=== PATIENT | female | born 1950 | race Hispanic/Latino ===

== ENCOUNTER 2016-11-01 10:33 | Emergency (ER) | payer MEDICARE, MEDICAID ==
[2016-11-01 10:34] VITALS: BMI 25.8
[2016-11-01 10:56] VITALS: BP 117/71; PULSE 82; RESP 20; TEMP 99.8; O2SAT 96
--- NOTE | 2016-11-01 11:10 | ED PDOC ---
HPI: Altered Mental Status Time Seen by Provider: 11/01/16 10:38 Chief Complaint (Nursing): Weakness/Neurological Deficit Chief Complaint (Provider): Generalized weakness/fatigue History Per: Patient History/Exam Limitations: Clinical Condition Onset/Duration Of Symptoms: Unknown (7am?) Onset Of Symptoms: Cannot Confirm Onset Current Symptoms Are (Timing): Still Present Usual Baseline: Alert Oriented Exacerbating Factor(s): Unknown Use Of Anticoag/Antiplatlets: No Decreased Ability To: Walk Severity: None Additional History Per: Family (homemaker) Associated Symptoms: Headache, Trouble Concentrating, Weakness. denies: Fever, Chills, Sweating, Chest Pain, Neck Pain, Back Pain, Seizure, Disoriented, Confused, Agitated, Not Eating, Not Drinking, Vomiting, Diarrhea, Cough, Dyspnea , Incontinence, Syncope, Combative, Falling Additional Complaint(s): 66 year old female with medical history of HIV, Anxiety, COPD, HLD presents to the ED via EMS due to drowsiness, generalized weakness, dizziness, posterior headache since waking up @ 7am. Patient states was in usual state of health last night. Patient states this morning woke up feeling very tired and off balanced when walking with cane. No recent changes in meds/diet, states compliance with medications. 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 No changes in speech, focal weakness, numbness/tingling, or visual changes. No fever, chills, abdominal pain, nausea, vomiting, diarrhea, or back pain. No urinary symptoms or neck stiffness. PMD: Dr. Hernandez NIHSS Stroke Scale - Date/Time Evaluation Performed Date Performed: 11/01/16 Time Performed: 11:00 When Was NIHSS Performed: Baseline - How Severe is the Stroke Level of Consciousness: 0=Alert LOC to Questions: 0=Both comments correct LOC to commands: 0=Obeys both correctly Best Gaze: 0=Normal Visual: 0=No visual loss Facial: 0=Normal Motor Arm - Left: 0=No drift Motor Arm - Right: 0=No drift Motor Leg - Left: 0=No drift Motor Leg - Right: 0=No drift Limb Ataxia: 0=Absent Sensory: 0=Normal Best Language: 0=No aphasia Dysarthia: 0=Normal articulation Extinction & Inattention (Neglect): 0=Normal, no object Score: 0 Past Medical History Reviewed: Historical Data, Nursing Documentation, Vital Signs Vital Signs: Last Vital Signs Temp 99.8 F H 11/01/16 10:49 Pulse 82 11/01/16 10:49 Resp 20 11/01/16 10:49 BP 117/71 11/01/16 10:49 Pulse Ox 96 11/01/16 10:49 - Medical History PMH: Anxiety, Arthritis, Asthma, Back Problems (chronic back pain, currently sees pain management ), COPD, HIV, Hypercholesterolemia, Pneumonia (x3 in 2000) Denies: Chronic Kidney Disease - Surgical History Surgical History: Cholecystectomy - Family History Family History: States: Unknown Family Hx - Home Medications Home Medications: Ambulatory Orders Medication Instructions Recorded Rosuvastatin Calcium [Crestor] 20 mg PO DAILY 06/17/14 clonazePAM [Klonopin] 1.5 mg PO TID PRN 06/17/14 Albuterol Sulfate [Proair Hfa] 0.09 mg IH PRN PRN 10/25/14 Calcium/Cholecalciferol [Oysco 500 1 tab PO DAILY 10/25/14 + D 500 mg-200 Iu] Emtricita/rilpivir/tenofovir 1 tab PO DAILY 10/25/14 [Complera 200 mg-25 mg-300 mg] Fluticasone/Salmeterol 250/50 1 puff IH Q12 10/25/14 [Advair Diskus] Oxycodone Hydrochloride [Oxycodone] 30 mg PO PRN PRN 10/25/14 Oxycodone Hydrochloride [Oxycontin] 60 mg PO PRN PRN 10/25/14 Albuterol HFA [Ventolin HFA 90 2 puff IH [id number] PRN #1 inhaler 08/02/15 mcg/actuation (8 g)] Azithromycin [Zithromax] 1 tab PO DAILY #6 tablet 08/02/15 Ibuprofen [Motrin] 600 mg PO Q6H PRN #20 tab 12/11/15 Acetaminophen [Tylenol Extra 500 mg PO TID #30 tablet 12/15/15 Strength] Ibuprofen [Motrin] 600 mg PO TID PRN #30 tab 12/15/15 clonazePAM [clonAZEPAM] 1 mg PO TID PRN #9 tab 04/16/16 Sulfamethoxazole/Trimethoprim 1 tab PO Q12 #14 tab 11/01/16 [Bactrim DS 800 mg-160 mg] - Allergies Allergies/Adverse Reactions: Allergies Allergy/AdvReac Type Severity Reaction Status Date / Time No Known Allergies Allergy Verified 12/14/15 22:06 Review of Systems ROS Statement: Except As Marked, All Systems Reviewed And Found Negative Neurological: Positive for: Weakness (generalized, no focal complaints), Dizziness, Other (fatigue, drowsy). Negative for: Change in Speech Physical Exam - Reviewed Nursing Documentation Reviewed: Yes Vital Signs Reviewed: Yes - Physical Exam Appears: Positive for: Non-toxic, No Acute Distress Head Exam: Positive for: ATRAUMATIC, NORMAL INSPECTION, NORMOCEPHALIC Skin: Positive for: Normal Color, Warm, Dry Eye Exam: Positive for: Normal appearance, EOMI, PERRL ENT: Positive for: Normal ENT Inspection, Pharynx Is (normal) Neck: Positive for: Normal, Painless ROM, Supple Cardiovascular/Chest: Positive for: Regular Rate, Rhythm Respiratory: Positive for: Normal Breath Sounds Gastrointestinal/Abdominal: Positive for: Normal Exam, Bowel Sounds (present), Soft. Negative for: Tenderness Back: Positive for: Normal Inspection. Negative for: L CVA Tenderness, R CVA Tenderness Extremity: Positive for: Normal ROM. Negative for: Tenderness Neurologic/Psych: Positive for: Alert, board attendant II-XII, Oriented. Negative for: Motor/Sensory Deficits, Aphasia, Facial Droop - Laboratory Results Result Diagrams: 11/01/16 11:28 11/01/16 11:28 - ECG O2 Sat by Pulse Oximetry: 96 Pulse Ox Interpretation: Normal - Progress ED Course And Treament: Time: 1100 Impression: 66 yo F w/ PMHx of HIV, Anxiety, COPD, HLD with drowsiness, generalized weakness, dizziness, posterior headache since waking up @ 7am. VSS. Afebrile. Plan: * CBC * CMP * UDS * URIANALYSIS * PT/PTT/INR * ALCOHOL SERUM * POC GLUCOSE * EKG * CONTINUOUS CARDIAC MONITORING * CT HEAD W/O CONTRAST * NS 1L BOLUS * REEVAL Time: 1300 Labs reviewed, unremarkable, urine pending Time: 1340 Urine studies reviewed, positive for opiates and evidence of UTI in UA. Improved symptoms though c/o headache. Tylenol 650mg x 1 Time: 1500 Patient re-evaluated, much improved symptoms, requests to go home. Discussed findings with patient, including UTI and likely cause of dizziness (opiates). Will send for urine culture. Patient to be discharged home. Rx given. ED precautions given. Disposition - Clinical Impression Clinical Impression: UTI (urinary tract infection), Dizziness - Patient ED Disposition Is Patient to be Admitted: No Counseled Patient/Family Regarding: Studies Performed, Diagnosis, Need For Followup, Rx Given - Disposition Referrals: Sammy Hernandez MD [Family Provider] - Disposition: Routine/Home Disposition Time: 15:00 Condition: GOOD Additional Instructions: Follow up with PMD in 2-3 days Take medications as prescribed Return to ED for worsening symptoms. Prescriptions: Sulfamethoxazole/Trimethoprim [Bactrim DS 800 mg-160 mg] 1 tab PO Q12 #14 tab Instructions: Urinary Tract Infection in Women (ED), Dizziness (ED)
[2016-11-01] MEDS ORDERED: Sodium Chloride 0.9% 1,000 ML IV SCH (11:15)
--- NOTE | 2016-11-01 12:00 | CT ---
PROCEDURE: CT HEAD WITHOUT CONTRAST. HISTORY: ams COMPARISON: Comparison made with CT scan brain 06/16/2016 and MRI brain 01/20/14 TECHNIQUE: Axial computed tomography images were obtained through the head/brain without intravenous contrast. Radiation dose: Total exam DLP = 877.21 mGy-cm. This CT exam was performed using one or more of the following dose reduction techniques: Automated exposure control, adjustment of the mA and/or kV according to patient size, and/or use of iterative reconstruction technique. FINDINGS: HEMORRHAGE: No acute parenchymal, subarachnoid or extra-axial hemorrhage. BRAIN: There are mild chronic periventricular white matter ischemic changes. No evidence of large acute infarct so far as can be seen. VENTRICLES: Mild generalized volume loss with prominent ventricles and sulci. CALVARIUM: There are no acute calvarial fractures. Mottled appearance of the inner table of the calvarium nonspecific. The scattered lucencies likely represent some combination of venous lakes and vascular grooves. PARANASAL SINUSES: The paranasal sinuses are well-developed and currently well-aerated. MASTOID AIR CELLS: Unremarkable as visualized. No inflammatory changes. OTHER FINDINGS: Orbits and contents grossly unremarkable. IMPRESSION: No acute intracranial hemorrhage or large acute infarct. . Mild chronic periventricular white matter ischemic changes. Mild generalized volume loss.
[2016-11-01 12:03] LABS: BASO % 0.7 % (0.0-2.0); EOS # 0.1 K/uL (0.0-0.7); EOS % 1.3 % (0.0-4.0); HEMATOCRIT 37.2 % (34.0-47.0); LYMPH # 1.5 K/uL (1.0-4.3); MEAN CELL VOLUME 96.1 fl (81.0-99.0); MEAN CORPUSCULAR HGB CONC 33.3 g/dL (33.0-37.0); MEAN PLATELET VOLUME 7.8 fl (7.2-11.7); MONO # 0.5 K/uL (0.0-0.8); NEUT # 4.9 K/uL (1.8-7.0); RED CELL DISTRIBUTION WIDTH 13.8 % (11.5-14.5)
[2016-11-01 12:16] LABS: ALB/GLOB RATIO 1.6 (1.0-2.1); ALCOHOL SERUM < 10 mg/dl (0-10); ALKALINE PHOSPHATASE 86 U/L (38-126); ALT/SGPT 28 U/L (9-52); AST/SGOT 21 U/L (14-36); BILIRUBIN,TOTAL 0.3 mg/dl (0.2-1.3); BLOOD UREA NITROGEN 20 mg/dl (7-17); CALCIUM 9.2 mg/dL (8.4-10.2); CARBON DIOXIDE 29 mmol/L (22-30); CHLORIDE 103 mmol/L (98-107); GFR AFRICAN-AMERICAN > 60; GLUCOSE,RANDOM 98 mg/dL (65-105); POTASSIUM 4.5 MMOL/L (3.6-5.0); SODIUM 141 mmol/l (132-148); TOTAL PROTEIN 7.2 G/DL (6.3-8.2)
--- NOTE | 2016-11-01 12:20 | CARD ---
APPROVED REPORT EKG Measurement Heart [id number] [id number] [id number] <Conclusion> Normal sinus rhythm Left axis deviation Abnormal ECG
[2016-11-01 12:35] LABS: PARTIAL THROMBOPLASTIN TIME 23.8 SECONDS (23.3-32.5)
[2016-11-01 13:19] LABS: RBC URINE 10 /hpf (0-3); URINE BACTERIA RARE (<OCC); URINE BILIRUBIN NEGATIVE (NEGATIVE); URINE BLOOD SMALL (NEGATIVE); URINE COLOR YELLOW (YELLOW); URINE GLUCOSE (UA) NEG (Normal); URINE KETONE NEGATIVE (NEGATIVE); URINE LEUKOCYTE ESTERASE LARGE Leu/uL (Negative); URINE PROTEIN NEGATIVE (NEGATIVE); URINE UROBILINOGEN 0.2-1.0 mg/dL (0.2-1.0); WBC URINE 21 /hpf (0-5)
== END 2016-11-01 15:22 | disposition home or self-care (01) ==
LOC: H.ER 10:33
DX: N39.0 Urinary tract infection, site not specified (principal); R51 Headache; R42 Dizziness and giddiness; F41.9 Anxiety disorder, unspecified; E78.00 Pure hypercholesterolemia, unspecified; G89.29 Other chronic pain; J44.9 Chronic obstructive pulmonary disease, unspecified; J45.909 Unspecified asthma, uncomplicated; B20 Human immunodeficiency virus [HIV] disease
CPT/HCPCS: 70450; 80053; 81003; 82948; 85025; 85610; 85730; 93005; 99285; G0480; J7040

== ENCOUNTER 2017-03-21 17:52 | Observation (INO) | payer MEDICARE, MEDICAID ==
[2017-03-21 17:52] VITALS: BMI 25.8
[2017-03-21] MEDS ORDERED: Albuterol-Ipratrop 3 mg / 0.5 (3 ml) UD INH STA (18:38)
--- NOTE | 2017-03-21 18:58 | ED PDOC ---
HPI: CCC, URI, Sore Throat Time Seen by Provider: 03/21/17 18:25 Chief Complaint (Nursing): Cough, Cold, Congestion Chief Complaint (Provider): Cough and Congestion History Per: Patient History/Exam Limitations: no limitations Onset/Duration Of Symptoms: Days (x3 weeks) Current Symptoms Are (Timing): Still Present Associated Symptoms: Fever (Tmax 102), Cough, Sputum (wile and yellow sputum), Nasal Congestion Additional Complaint(s): Martina Uribe, a 66 year old female, with a past medical history of HIV presents to the ED complaining cough and congestion x3 weeks. The patient states that initially the her symptoms were mild but now they are more severe associated with shortness of breath, fever(Tmax 102) and a cough productive of yellow and white sputum. Denies diarrhea, vomiting and leg swelling. The patient reports that she was seen at the clinic 3 weeks ago and diagnosed with asthma. She states that she was given an inhaler but there has been no improvement of her symptoms. PMD: Dr. Hernandez - [facility] Past Medical History Vital Signs: Last Vital Signs Temp 98.0 F 03/22/17 07:39 Pulse 68 03/22/17 07:39 Resp 18 03/22/17 07:39 BP 124/69 03/22/17 07:39 Pulse Ox 96 03/22/17 07:39 - Medical History PMH: Anxiety, Arthritis, Asthma, Back Problems (chronic back pain, currently sees pain management ), COPD, Depression, HIV, Hypercholesterolemia, Pneumonia (x3 in 2000) Denies: Chronic Kidney Disease - Surgical History Surgical History: Cholecystectomy Other surgeries: Eye surgery, Shoulder surgery - Family History Family History: States: Unknown Family Hx - Social History Current smoker - smoking cessation education provided: Yes (heavy smoker) Alcohol: None Drugs: Denies - Home Medications Home Medications: Ambulatory Orders Medication Instructions Recorded clonazePAM [Klonopin] 1.5 mg PO TID PRN 06/17/14 Oxycodone Hydrochloride [Oxycodone] 30 mg PO PRN PRN 10/25/14 Oxycodone Hydrochloride [Oxycontin] 60 mg PO PRN PRN 10/25/14 clonazePAM [Klonopin] 1 mg PO TID PRN #9 tab 04/16/16 Sulfamethoxazole/Trimethoprim 1 tab PO Q12 #14 tab 11/01/16 [Bactrim DS Tab] Abacavir/Dolutegravir/Lamivudi 1 tab PO DAILY 03/21/17 [Triumeq Tablet] Escitalopram [Lexapro] 1 tab PO DAILY 03/21/17 Mirtazapine [Remeron] 15 mg PO HS 03/21/17 Albuterol HFA [Ventolin HFA 90 2 puff IH Q4 #1 inhaler 03/22/17 mcg/actuation (8 g)] levoFLOXacin [Levaquin] 500 mg PO DAILY 4 Days #4 tab 03/22/17 predniSONE [Prednisone] 40 mg PO DAILY #8 tab 03/22/17 - Allergies Allergies/Adverse Reactions: Allergies Allergy/AdvReac Type Severity Reaction Status Date / Time No Known Allergies Allergy Verified 12/14/15 22:06 Review of Systems ROS Statement: Except As Marked, All Systems Reviewed And Found Negative Constitutional: Positive for: Fever (Tmax 102) ENT: Positive for: Nose Congestion Respiratory: Positive for: Cough Gastrointestinal: Negative for: Vomiting, Diarrhea Musculoskeletal: Positive for: Other (Denies leg swelling) Physical Exam - Reviewed Nursing Documentation Reviewed: Yes Vital Signs Reviewed: Yes - Physical Exam Appears: Positive for: Non-toxic, In Acute Distress (mild respiratory) Head Exam: Positive for: ATRAUMATIC, NORMOCEPHALIC Skin: Positive for: Warm, Dry Eye Exam: Positive for: EOMI, PERRL ENT: Negative for: Pharyngeal Erythema, Tonsillar Exudate Neck: Positive for: Painless ROM, Supple Cardiovascular/Chest: Positive for: Regular Rate, Rhythm. Negative for: Murmur Respiratory: Positive for: Rhonchi, Wheezing, Respiratory Distress. Negative for: Accessory Muscle Use Gastrointestinal/Abdominal: Positive for: Soft. Negative for: Tenderness Back: Positive for: Normal Inspection. Negative for: Vertebral Tenderness Extremity: Positive for: Normal ROM. Negative for: Deformity Lymphatic: Negative for: Adenopathy Neurologic/Psych: Positive for: Alert. Negative for: Motor/Sensory Deficits - Laboratory Results Result Diagrams: 03/21/17 19:05 03/21/17 19:05 - ECG O2 Sat by Pulse Oximetry: 94 (RA) Pulse Ox Interpretation: Normal Medical Decision Making Medical Decision Makin Initial Impression: 66 y/o female presenting with cough and shortness of breath Differentials: Pneumonia vs Bronchitis vs CHF vs Asthma Exacerbation Initial plan: * VBG Shock Panel * B-type Natriuretic * CMP * LDH * Troponin * Chest x-ray * Duoneb 9ml INH * SOLU-medrol 125mg IVP * Blood Culture * Peak Flow * pre/post Influenza A B * Reevaluation CXR unremarkable. Labs with no emergently significant lab abnormalities. On reeval pt has persisten diffuse wheeze and rhonchi with no improvement of peak flow. Needs hospitalization for what appears to be initial diagnosis of COPD and exacerbation. [facility] resident. Scribe Attestation Documented by Ashley Funk acting as a scribe for Maritza Villafuerte MD. Provider Attestation All medical record entries made by the Scribe were at my direction and personally dictated by me. I have reviewed the chart and agree that the record accurately reflects my personal performance of the history, physical exam, medical decision making, and the department course for this patient. I have also personally directed, reviewed, and agree with the discharge instructions and disposition. Disposition - Clinical Impression Clinical Impression: Asthma exacerbation with COPD (chronic obstructive pulmonary disease) Counseled Patient/Family Regarding: Studies Performed, Diagnosis - Disposition Disposition Time: 20:00 Condition: FAIR
[2017-03-21 19:17] LABS: BASO % 0.3 % (0.0-2.0); EOS # 0.1 K/uL (0.0-0.7); EOS % 1.5 % (0.0-4.0); HEMATOCRIT 38.2 % (34.0-47.0); LYMPH # 2.3 K/uL (1.0-4.3); LYMPH % 29.2 % (20.0-40.0); MEAN CELL VOLUME 95.5 fl (81.0-99.0); MEAN CORPUSCULAR HEMOGLOBIN 32.3 pg (27.0-31.0); MEAN CORPUSCULAR HGB CONC 33.8 g/dL (33.0-37.0); MEAN PLATELET VOLUME 7.2 fl (7.2-11.7); MONO # 0.6 K/uL (0.0-0.8); MONO % 7.5 % (0.0-10.0); NEUT # 4.9 K/uL (1.8-7.0); NEUT % 61.5 % (50.0-75.0); NRBC % 0.1 % (0.0-0.0); RED CELL DISTRIBUTION WIDTH 14.5 % (11.5-14.5)
[2017-03-21 19:28] LABS: ALB/GLOB RATIO 1.4 (1.0-2.1); ALKALINE PHOSPHATASE 86 U/L (38-126); ALT/SGPT 28 U/L (9-52); AST/SGOT 24 U/L (14-36); BILIRUBIN,TOTAL 0.4 mg/dl (0.2-1.3); BLOOD UREA NITROGEN 17 mg/dl (7-17); CALCIUM 9.5 mg/dL (8.4-10.2); CARBON DIOXIDE 28 mmol/L (22-30); CHLORIDE 103 mmol/L (98-107); GFR AFRICAN-AMERICAN > 60; GLUCOSE,RANDOM 105 mg/dL (65-105); POTASSIUM 4.1 MMOL/L (3.6-5.0); SODIUM 145 mmol/l (132-148); TOTAL PROTEIN 7.6 G/DL (6.3-8.2)
[2017-03-21 19:44] LABS: VENOUS BLOOD GAS BASE EXCESS 3.9 mmol/L (0.0-2.0); VENOUS BLOOD GAS PCO2 70 mmHg (40-60); VENOUS BLOOD PH 7.28 (7.32-7.43)
[2017-03-21] MEDS ORDERED: levoFLOXacin 750 mg in D5W 150 ML BAG IVPB STA (20:46)
[2017-03-21] MEDS ORDERED: [UNRECOGNIZED DRUG - OTHER] PO PRN ×2 (21:12→21:36)
[2017-03-21] MEDS ORDERED: OXYCODONE HYDROCHLORIDE 30 MG PO PRN ×2 (21:12→21:35)
--- NOTE | 2017-03-21 21:39 | CP.PCM.HP ---
History of Present Illness - History of Present Illness History of Present Illness: Pt is a 66 year old female, with a past medical history of HIV,chronic pain, and active smoker who presents to the ED complaining cough and congestion x3 weeks. The patient states that initially the her symptoms were mild but now they are more severe associated with shortness of breath, fever(Tmax 102) and a cough productive of yellow and white sputum and also vomited once this morning. Pt reports she saw her [facility] doctor on 03/17/17 where she was diagnosed with Asthma and given a script for an inhaler and also steroids 50mg PO daily for which she is not taking. Denies diarrhea, vomiting and leg swelling. Does not have any other complaints other reddy PMD- Originally Dr. Hernandez but now seeing Dr. Liu Present on Admission - Present on Admission Any Indicators Present on Admission: No Review of Systems - Review of Systems All systems: reviewed and no additional remarkable complaints except (per HPI) Past Patient History - Infectious Disease Hx of Infectious Diseases: None - Past Medical History & Family History Past Medical History?: Yes - Past Social History Alcohol: None Drugs: Denies - CARDIAC Hx Hypercholesterolemia: Yes - PULMONARY Hx Asthma: Yes Hx Chronic Obstructive Pulmonary Disease (COPD): Yes Hx Pneumonia: Yes (x3 in 2000) - NEUROLOGICAL Hx Neurological Disorder: No - HEENT Hx HEENT Problems: No - RENAL Hx Chronic Kidney Disease: No - ENDOCRINE/METABOLIC Hx Endocrine Disorders: No - HEMATOLOGICAL/ONCOLOGICAL Hx Human Immunodeficiency Virus (HIV): Yes - INTEGUMENTARY Hx Dermatological Problems: No - MUSCULOSKELETAL/RHEUMATOLOGICAL Hx Arthritis: Yes - GASTROINTESTINAL Hx Gastrointestinal Disorders: No - GENITOURINARY/GYNECOLOGICAL Hx Genitourinary Disorders: No - PSYCHIATRIC Hx Anxiety: Yes Hx Depression: Yes - SURGICAL HISTORY Hx Cholecystectomy: Yes - ANESTHESIA Hx Anesthesia: Yes Hx Anesthesia Reactions: No Hx Malignant Hyperthermia: No Meds Allergies/Adverse Reactions: Allergies Allergy/AdvReac Type Severity Reaction Status Date / Time No Known Allergies Allergy Verified 12/14/15 22:06 Physical Exam - Constitutional Appears: Older Than Stated Age - Head Exam Head Exam: NORMOCEPHALIC - Eye Exam Eye Exam: Normal appearance, PERRL Pupil Exam: NORMAL ACCOMODATION - ENT Exam ENT Exam: Mucous Membranes Moist - Respiratory Exam Respiratory Exam: Rales, Rhonchi, NORMAL BREATHING PATTERN. absent: Accessory Muscle Use, Wheezes - Cardiovascular Exam Cardiovascular Exam: REGULAR RHYTHM, +S1, +S2 - GI/Abdominal Exam GI & Abdominal Exam: Normal Bowel Sounds, Soft. absent: Tenderness - Extremities Exam Extremities exam: Negative for: calf tenderness, pedal edema - Neurological Exam Neurological exam: Alert, CN II-XII Intact, Oriented x3 - Psychiatric Exam Psychiatric exam: Anxious Results - Vital Signs Recent Vital Signs: Last Vital Signs Temp 98.1 F 03/21/17 20:52 Pulse 100 H 03/21/17 18:15 Resp 20 03/21/17 18:15 BP 157/89 H 03/21/17 18:15 Pulse Ox 94 L 03/21/17 20:50 - Labs Result Diagrams: 03/21/17 19:05 03/21/17 19:05 Labs: Laboratory Results - last 24 hr 03/21/17 03/21/17 03/21/17 19:05 19:05 19:18 WBC 8.0 RBC 3.99 Hgb 12.9 Hct 38.2 MCV 95.5 MCH 32.3 H MCHC 33.8 RDW 14.5 Plt Count 340 D MPV 7.2 Neut % (Auto) 61.5 Lymph % (Auto) 29.2 Hodgeman % (Auto) 7.5 Eos % (Auto) 1.5 Baso % (Auto) 0.3 Neut # 4.9 Lymph # 2.3 Hodgeman # 0.6 Eos # 0.1 Baso # 0.0 pO2 VBG pH VBG pCO2 VBG HCO3 VBG Total CO2 VBG O2 Sat (Calc) VBG Base Excess VBG Potassium Glucose Lactate FiO2 Crit Value Called To Crit Value Called By Crit Value Read Back Blood Gas Notified Time Sodium 145 Potassium 4.1 Chloride 103 Carbon Dioxide 28 Anion Gap 18 BUN 17 Creatinine 1.1 Est GFR ( Amer) > 60 Est GFR (Non-Af Amer) 50 Random Glucose 105 Calcium 9.5 Total Bilirubin 0.4 AST 24 ALT 28 Alkaline Phosphatase 86 Lactate Dehydrogenase 460 Troponin I < 0.0120 NT-Pro-B Natriuret Pep 78.1 Total Protein 7.6 Albumin 4.4 Globulin 3.2 Albumin/Globulin Ratio 1.4 Venous Blood Potassium Influenza Typ A,B (EIA) Negative for flu a/b 03/21/17 19:35 WBC RBC Hgb Hct MCV MCH MCHC RDW Plt Count MPV Neut % (Auto) Lymph % (Auto) Hodgeman % (Auto) Eos % (Auto) Baso % (Auto) Neut # Lymph # Hodgeman # Eos # Baso # pO2 17 L VBG pH 7.28 L VBG pCO2 70 H* VBG HCO3 25.8 VBG Total CO2 35.0 H VBG O2 Sat (Calc) 33.8 L VBG Base Excess 3.9 H VBG Potassium 4.1 Glucose 106 H Lactate 0.7 FiO2 23.0 Crit Value Called To Percy goode Crit Value Called By 23 Crit Value Read Back Y Blood Gas Notified Time 1939 Sodium 140.0 Potassium Chloride 103.0 Carbon Dioxide Anion Gap BUN Creatinine Est GFR ( Amer) Est GFR (Non-Af Amer) Random Glucose Calcium Total Bilirubin AST ALT Alkaline Phosphatase Lactate Dehydrogenase Troponin I NT-Pro-B Natriuret Pep Total Protein Albumin Globulin Albumin/Globulin Ratio Venous Blood Potassium 4.1 Influenza Typ A,B (EIA) Assessment & Plan - Assessment and Plan (Free Text) Assessment: 66 y/o female with no history of HIV, chronic pain and anxiety and recent diagnosis of asthma, being admitted for asthma exacerbation Plan: 1. Mild Persistent Asthma Exacerbation vs beginning stages of COPD given smoking status and lung exam Steriod of 125mg given in Ed 9ml of duoneb at ED and dose of levaquin given Chest xray negative for pneumonia Will hold of continuing antibiotics for now, re-evaluate in the morning continue with duonebs Q4hrs steroids 40mg Q12hrs monitor 2. HIV( no evidence of AIDS defining disease) CD count 900 per pt Pt on triumeq at home, but not on formulary here at this hospital and pt lives alone so nobody will be able to bring it to her Ordered the 3 components of triumeq -continue with bactrim DS 3. Anxiety Home medication- remeron, klonopin resumed monitor 4.Current Smoker 40 years of smoking, currently smoking 1/2 pack a day on nictoine 21mg patch daily already initiated quitting with her PCP 5. Diet- regular 6. DVT prophylaxis- Lovenox 40mg
[2017-03-21] MEDS ORDERED: oxyCODONE 10 mg Immediate Release Tab PO PRN ×2 (23:24→23:25)
[2017-03-22] MEDS: Albuterol-Ipratrop 3 mg / 0.5 (3 ml) UD INH SCH ×4 (00:28→11:54)
[2017-03-22 07:40] VITALS: BP 124/69; PULSE 68; RESP 18; TEMP 98
[2017-03-22] MEDS: Pneumococcal 23-Valent Vaccine IM ONE ×2 (08:20→09:43)
[2017-03-22] MEDS ORDERED: Tmp-Smz 800 mg-160 mg DS Tab PO SCH (09:00)
[2017-03-22] MEDS ORDERED: Influenza Vaccine 18yr & older 0.5 ML/45 MCG SYR IM ONE (09:00)
[2017-03-22] MEDS ORDERED: Azithromycin 500 MG in Sodium Chloride 0.9% 250 ML IVPB SCH (09:00)
[2017-03-22] MEDS ORDERED: Enoxaparin 40 mg Syringe SC SCH (09:00)
[2017-03-22] MEDS ORDERED: methylPREDNISolone 40 MG in Sodium Chloride 0.9% 50 ML IVPB SCH (09:00)
[2017-03-22] MEDS ORDERED: Sodium Chloride 3% for Inhalation 4 ML VIAL.NEB IH PRN (10:31)
[2017-03-22] MEDS ORDERED: levoFLOXacin 500 MG TAB PO SCH (10:45)
--- NOTE | 2017-03-22 11:24 | RAD ---
HISTORY: cough fever COMPARISON: Chest radiographs 04/15/2016. TECHNIQUE: Chest PA and lateral FINDINGS: LUNGS: No active pulmonary disease. PLEURA: No significant pleural effusion identified. No pneumothorax apparent. CARDIOVASCULAR: Normal. OSSEOUS STRUCTURES: Incidental orthopedic anchors are identified at the right humeral head. VISUALIZED UPPER ABDOMEN: Normal. OTHER FINDINGS: None. IMPRESSION: No interval acute cardiopulmonary disease appreciated.
--- NOTE | 2017-03-22 12:17 | CP.PCM.DIS ---
Provider - Provider Date of Admission: 03/21/17 20:47 Attending physician: Magda Starks MD Time Spent in preparation of Discharge (in minutes): 20 Diagnosis - Discharge Diagnosis (1) Asthma exacerbation with COPD (chronic obstructive pulmonary disease) Status: Acute (2) Bronchitis Status: Acute Hospital Course - Lab Results Lab Results: Most Recent Lab Values WBC 8.0 K/uL (4.8-10.8) 03/21/17 19:05 RBC 3.99 Mil/uL (3.80-5.20) 03/21/17 19:05 Hgb 12.9 g/dL (12.0-16.0) 03/21/17 19:05 Hct 38.2 % (34.0-47.0) 03/21/17 19:05 MCV 95.5 fl (81.0-99.0) 03/21/17 19:05 MCH 32.3 pg (27.0-31.0) H 03/21/17 19:05 MCHC 33.8 g/dL (33.0-37.0) 03/21/17 19:05 RDW 14.5 % (11.5-14.5) 03/21/17 19:05 Plt Count 340 K/uL (130-400) D 03/21/17 19:05 MPV 7.2 fl (7.2-11.7) 03/21/17 19:05 Neut % (Auto) 61.5 % (50.0-75.0) 03/21/17 19:05 Lymph % (Auto) 29.2 % (20.0-40.0) 03/21/17 19:05 Clare % (Auto) 7.5 % (0.0-10.0) 03/21/17 19:05 Eos % (Auto) 1.5 % (0.0-4.0) 03/21/17 19:05 Baso % (Auto) 0.3 % (0.0-2.0) 03/21/17 19:05 Neut # 4.9 K/uL (1.8-7.0) 03/21/17 19:05 Lymph # 2.3 K/uL (1.0-4.3) 03/21/17 19:05 Clare # 0.6 K/uL (0.0-0.8) 09/29/17 19:05 Eos # 0.1 K/uL (0.0-0.7) 03/21/17 19:05 Baso # 0.0 K/uL (0.0-0.2) 03/21/17 19:05 pO2 17 mm/Hg (30-55) L 03/21/17 19:35 VBG pH 7.28 (7.32-7.43) L 03/21/17 19:35 VBG pCO2 70 mmHg (40-60) H* 03/21/17 19:35 VBG HCO3 25.8 mmol/L 03/21/17 19:35 VBG Total CO2 35.0 mmol/L (22-28) H 03/21/17 19:35 VBG O2 Sat (Calc) 33.8 % (40-65) L 03/21/17 19:35 VBG Base Excess 3.9 mmol/L (0.0-2.0) H 03/21/17 19:35 VBG Potassium 4.1 mmol/L (3.6-5.2) 03/21/17 19:35 Sodium 140.0 mmol/L (132-148) 03/21/17 19:35 Chloride 103.0 mmol/L (98-107) 03/21/17 19:35 Glucose 106 mg/dL (65-105) H 03/21/17 19:35 Lactate 0.7 mmol/L (0.7-2.1) 03/21/17 19:35 FiO2 23.0 % 03/21/17 19:35 Crit Value Called To Percy goode 03/21/17 19:35 Crit Value Called By 23 03/21/17 19:35 Crit Value Read Back Y 03/21/17 19:35 Blood Gas Notified Time 193903/21/17 19:35 Sodium 145 mmol/l (132-148) 03/21/17 19:05 Potassium 4.1 MMOL/L (3.6-5.0) 03/21/17 19:05 Chloride 103 mmol/L (98-107) 03/21/17 19:05 Carbon Dioxide 28 mmol/L (22-30) 03/21/17 19:05 Anion Gap 18 (10-20) 03/21/17 19:05 BUN 17 mg/dl (7-17) 03/21/17 19:05 Creatinine 1.1 mg/dL (0.7-1.2) 03/21/17 19:05 Est GFR ( Amer) > 60 03/21/17 19:05 Est GFR (Non-Af Amer) 50 03/21/17 19:05 Random Glucose 105 mg/dL (65-105) 03/21/17 19:05 Calcium 9.5 mg/dL (8.4-10.2) 03/21/17 19:05 Total Bilirubin 0.4 mg/dl (0.2-1.3) 03/21/17 19:05 AST 24 U/L (14-36) 03/21/17 19:05 ALT 28 U/L (9-52) 03/21/17 19:05 Alkaline Phosphatase 86 U/L (38-126) 03/21/17 19:05 Lactate Dehydrogenase 460 U/L (313-618) 03/21/17 19:05 Troponin I < 0.0120 ng/mL (0.00-0.120) 03/21/17 19:05 NT-Pro-B Natriuret Pep 78.1 pg/ml (0-900) 03/21/17 19:05 Total Protein 7.6 G/DL (6.3-8.2) 03/21/17 19:05 Albumin 4.4 g/dL (3.5-5.0) 03/21/17 19:05 Globulin 3.2 gm/dL (2.2-3.9) 03/21/17 19:05 Albumin/Globulin Ratio 1.4 (1.0-2.1) 03/21/17 19:05 Venous Blood Potassium 4.1 mmol/L (3.6-5.2) 03/21/17 19:35 Influenza Typ A,B (EIA) Negative for flu a/b (NEGATIVE) 03/21/17 19:18 - Hospital Course Hospital Course: 66yo F smoker with PMHx HIV, newly dx asthma admitted for asthma exacerbation with likely COPD given 20+ pack year smoking hx. ABG showed non AG respiratory acidosis 2/2 CO2 retention. SOB symptomatically improved with duoneb treatments and IV steroids during hospitalization. Pt SaO2 >92% on RA at time of discharge and comfortably breathing. CXR showed no acute pathology. Pt d/c with albuterol inhaler, prednisone 40 PO x5 days, levaquin 500mg QD x5 days. Pt to contact [facility] for FU with Dr. Liu. Discharge Exam - Head Exam Head Exam: ATRAUMATIC, NORMOCEPHALIC - Eye Exam Eye Exam: Normal appearance - ENT Exam ENT Exam: Mucous Membranes Moist - Neck Exam Neck exam: Full Rom, Normal Inspection - Respiratory Exam Respiratory Exam: Rales, Wheezes - Cardiovascular Exam Cardiovascular Exam: REGULAR RHYTHM - GI/Abdominal Exam GI & Abdominal Exam: Normal Bowel Sounds, Soft - Extremities Exam Extremities exam: normal inspection - Back Exam Back exam: NORMAL INSPECTION - Neurological Exam Neurological exam: Alert, Oriented x3 - Skin Skin Exam: Dry, Warm Discharge Plan - Discharge Medications Prescriptions: Albuterol HFA [Ventolin HFA 90 mcg/actuation (8 g)] 2 puff IH Q4 #1 inhaler levoFLOXacin [Levaquin] 500 mg PO DAILY 4 Days #4 tab predniSONE [Prednisone] 40 mg PO DAILY #8 tab - Follow Up Plan Condition: FAIR Disposition: HOME/ ROUTINE Instructions: Asthma (DC), Acute Bronchitis (GEN) Additional Instructions: pt to make follow up appt with Dr. Liu Referrals: Keara Liu MD [Provisional Staff] -
[2017-03-22 17:03] VITALS: O2SAT 94
== END 2017-03-22 12:00 | disposition home or self-care (01) ==
LOC: H.ER 17:52 → H.ERHOLD 20:47 → H.MEDSURG1 22:33
PROVIDERS: ADMIT Family Medicine; ATTEND Family Medicine
DX: J44.9 Chronic obstructive pulmonary disease, unspecified (principal); J45.901 Unspecified asthma with (acute) exacerbation; Z21 Asymptomatic human immunodeficiency virus [HIV] infection status; E78.00 Pure hypercholesterolemia, unspecified; F17.200 Nicotine dependence, unspecified, uncomplicated; Z87.01 Personal history of pneumonia (recurrent); Z90.49 Acquired absence of other specified parts of digestive tract; E87.2 Acidosis; F32.9 Major depressive disorder, single episode, unspecified; F41.9 Anxiety disorder, unspecified; G89.29 Other chronic pain; M54.9 Dorsalgia, unspecified; M19.90 Unspecified osteoarthritis, unspecified site; J02.9 Acute pharyngitis, unspecified; Z23 Encounter for immunization
CPT/HCPCS: 71020; 80053; 82803; 83615; 83880; 84484; 85025; 87040; 87804; 90732; 94150; 94640; 96365; 96366; 96367; 96372; 96375; 99285; G0008; G0009; G0378; J1650; J2920; J2930; Q2035

== ENCOUNTER 2017-03-24 05:32 | Inpatient (IN) | payer OTHER ==
[2017-03-24 05:40] VITALS: BMI 21.5
[2017-03-24] MEDS ORDERED: Albuterol-Ipratrop 3 mg / 0.5 (3 ml) UD ONE (06:14)
[2017-03-24] MEDS ORDERED: Albuterol 0.083% Inhal Sol (2.5 mg/3 mL) UD INH STA (06:21)
[2017-03-24] MEDS ORDERED: Albuterol-Ipratrop 3 mg / 0.5 (3 ml) UD INH STA ×3 (06:22→06:23)
--- NOTE | 2017-03-24 06:30 | ED PDOC ---
HPI: SOB/CHF/COPD Time Seen by Provider: 03/24/17 05:58 Chief Complaint (Nursing): Shortness Of Breath Chief Complaint (Provider): Shortness of Breath History Per: Patient History/Exam Limitations: no limitations Onset/Duration Of Symptoms: Hrs (since earlier today) Current Symptoms Are (Timing): Still Present Initiating Event: Upper Respiratory Illness Associated Symptoms: denies: Fever, Chest Pain Similar Symptoms Previously: similar presentation x3 days ago left AMA Recently: Seen In ED Additional Complaint(s): 66 year old female presents to ED with complaints of Shortness of breath since earlier today and has a past medical history of COPD, asthma, and HIV. (+) wheeze and cough, (-) fever or chest pain. Notes that inhaler did not mitigate symptoms. Of note, patient was here x3 days ago with the same presentation but left AMA. PCP: Clinic Past Medical History Reviewed: Historical Data, Nursing Documentation, Vital Signs Vital Signs: Last Vital Signs Temp 98.2 F 03/24/17 05:53 Pulse 73 03/24/17 06:34 Resp 18 03/24/17 05:53 BP 153/103 H 03/24/17 05:53 Pulse Ox 100 03/24/17 06:38 - Medical History PMH: Anxiety, Arthritis, Asthma, Back Problems (chronic back pain, currently sees pain management ), COPD, Depression, HIV, Hypercholesterolemia, Pneumonia (x3 in 2000) Denies: Chronic Kidney Disease - Surgical History Surgical History: Cholecystectomy - Family History Family History: States: Unknown Family Hx - Social History Current smoker - smoking cessation education provided: Yes (heavy) Ex-Smoker (has not smoked in the last 12 months): No - Home Medications Home Medications: Ambulatory Orders Medication Instructions Recorded clonazePAM [Klonopin] 1.5 mg PO TID PRN 06/17/14 Oxycodone Hydrochloride [Oxycontin] 60 mg PO PRN PRN 10/25/14 Abacavir/Dolutegravir/Lamivudi 1 tab PO DAILY 03/21/17 [Triumeq Tablet] Escitalopram [Lexapro] 1 tab PO DAILY 03/21/17 Albuterol HFA [Ventolin HFA 90 2 puff IH Q4 #1 inhaler 03/22/17 mcg/actuation (8 g)] levoFLOXacin [Levaquin] 500 mg PO DAILY 4 Days #4 tab 03/22/17 Abacavir/Dolutegravir/Lamivudi 1 tab PO DAILY 03/24/17 [Triumeq Tablet] - Allergies Allergies/Adverse Reactions: Allergies Allergy/AdvReac Type Severity Reaction Status Date / Time No Known Allergies Allergy Verified 12/14/15 22:06 Curb-65 Severity Score - CURB-65 Severity Score Confusion: No Respiratory Rate greater than/equal to 30: No Systolic BP <90 or Diastolic BP less than/equal 60mmHg: No Age >64: Yes Curb-65 Score: 1 Percentage 30-day mortality: 2.7% Wells Criteria for PE - Wells Criteria for Pulmonary Embolism Clinical Signs and Symptoms of DVT: No Heart Rate >100: No Immobilization at least 3 days;Surgery previous 4 weeks: No Hemoptysis: No Malignancy w/treatment within 6 months, or palliative: No Total Score: 0 Review of Systems ROS Statement: Except As Marked, All Systems Reviewed And Found Negative Constitutional: Negative for: Fever Cardiovascular: Negative for: Chest Pain Respiratory: Positive for: Cough, Shortness of Breath, Wheezing Physical Exam - Reviewed Nursing Documentation Reviewed: Yes Vital Signs Reviewed: Yes - Physical Exam Appears: Positive for: No Acute Distress. Negative for: Well Head Exam: Positive for: ATRAUMATIC, NORMOCEPHALIC Skin: Positive for: Normal Color, Warm, Dry Eye Exam: Positive for: EOMI, Normal appearance, PERRL ENT: Positive for: Normal ENT Inspection Neck: Positive for: Normal, Painless ROM Cardiovascular/Chest: Positive for: Regular Rate, Rhythm. Negative for: Murmur Respiratory: Positive for: Wheezing (diffuse bilateral ), Respiratory Distress ( mild) Gastrointestinal/Abdominal: Positive for: Normal Exam, Bowel Sounds, Soft. Negative for: Tenderness Back: Positive for: Normal Inspection Extremity: Positive for: Normal ROM. Negative for: Deformity Neurologic/Psych: Positive for: Alert, Oriented. Negative for: Motor/Sensory Deficits - Laboratory Results Result Diagrams: 03/24/17 06:40 - ECG ECG Rhythm: Positive for: Normal QRS, Normal ST Segment, Sinus Rhythm Rate: 73 O2 Sat by Pulse Oximetry: 100 (RA) Pulse Ox Interpretation: Normal Medical Decision Making Medical Decision Makin Initial impression: asthma, COPD exacerbation DDx: rule out CHF, rule out Pneumonia Initial plan: * EKG * Labs * Trop I * Chest x-ray * Albuterol 0.083% 2.5mg INH * Duonebs 3mL INH x3 * Solumedrol 125mg IVP * Preak flow pre/post Tx x3 * Re-evaluation Scribe Attestation: Documented by Drea Nicholas acting as a scribe for Saurabh De La Cruz MD. Scribe Attestation: All medical record entries made by the Scribe were at my direction and personally dictated by me. I have reviewed the chart and agree that the record accurately reflects my personal performance of the history, physical exam, medical decision making, and the department course for this patient. I have also personally directed, reviewed, and agree with the discharge instructions and disposition. Disposition - Clinical Impression Clinical Impression: Asthma exacerbation with COPD (chronic obstructive pulmonary disease) - Patient ED Disposition Is Patient to be Admitted: Transfer of Care - Disposition Disposition: Transfer of Care Disposition Time: 07:00 Condition: FAIR Forms: [employer] (Japanese) Patient Signed Over To: Nicko Fenton
[2017-03-24 06:50] LABS: BASO % 0.1 % (0.0-2.0); EOS % 0.1 % (0.0-4.0); LYMPH # 1.5 K/uL (1.0-4.3); LYMPH % 13.2 % (20.0-40.0); MEAN CELL VOLUME 95.4 fl (81.0-99.0); MEAN CORPUSCULAR HEMOGLOBIN 31.6 pg (27.0-31.0); MEAN CORPUSCULAR HGB CONC 33.1 g/dL (33.0-37.0); MEAN PLATELET VOLUME 7.3 fl (7.2-11.7); MONO # 0.6 K/uL (0.0-0.8); NEUT # 9.1 K/uL (1.8-7.0); NEUT % 81.6 % (50.0-75.0); RED CELL DISTRIBUTION WIDTH 14.3 % (11.5-14.5); WHITE BLOOD COUNT 11.1 K/uL (4.8-10.8)
[2017-03-24 06:57] LABS: BLOOD UREA NITROGEN 22 mg/dl (7-17); CALCIUM 9.3 mg/dL (8.4-10.2); CARBON DIOXIDE 27 mmol/L (22-30); CHLORIDE 108 mmol/L (98-107); GFR AFRICAN-AMERICAN > 60; GLUCOSE,RANDOM 97 mg/dL (65-105); SODIUM 148 mmol/l (132-148)
--- NOTE | 2017-03-24 07:35 | ED PDOC ---
- Laboratory Results Result Diagrams: 03/25/17 06:00 03/25/17 06:00 - ECG O2 Sat by Pulse Oximetry: 100 (RA) Pulse Ox Interpretation: Normal Medical Decision Making Medical Decision Making: Time: 07:00 Patient is signed out to me by Dr. Saurabh De La Cruz, pending labs and reevaluation Time: 9:00 --Labs reviewed. Troponin is negative. --Chest X-Ray is negative for pneumonia --Upon reevaluation, patient still feels short of breath --She is a patient of the clinic Time: : --Patient will be admitted to telemetry for observation, diagnosis: COPD exacerbation Time: :08 --Ordered repeat Albuterol nebulizer with Peak Flow pre/post treatment --Spoke to resident, patient accepted for admission Scribe Attestation: Documented by Camila Morton, acting as a scribe for Nicko Fenton MD Provider Scribe Attestation: All medical record entries made by the Scribe were at my direction and personally dictated by me. I have reviewed the chart and agree that the record accurately reflects my personal performance of the history, physical exam, medical decision making, and the department course for this patient. I have also personally directed, reviewed, and agree with the discharge instructions and disposition. Disposition Counseled Patient/Family Regarding: Studies Performed, Diagnosis, Need For Followup - Clinical Impression Clinical Impression: Asthma exacerbation with COPD (chronic obstructive pulmonary disease) - POA Present On Arrival: None - Disposition Disposition: Hospitalized as Observation Patient Disposition Time: 09:03 Condition: FAIR
[2017-03-24] MEDS ORDERED: Albuterol 0.083% Inhal Sol (2.5 mg/3 mL) UD INH ONE (09:08)
[2017-03-24] MEDS ORDERED: Albuterol 0.083% Inhal Sol (2.5 mg/3 mL) UD ONE (09:23)
--- NOTE | 2017-03-24 10:52 | RAD ---
PROCEDURE: CHEST RADIOGRAPH, 1 VIEW HISTORY: Dyspnea COMPARISON: 03/21/2017. FINDINGS: LUNGS: The lungs are well inflated. There is subsegmental atelectasis in the left lower lobe. No focal consolidation. PLEURA: No pneumothorax or pleural fluid seen. CARDIOVASCULAR: Normal. OSSEOUS STRUCTURES: No significant abnormalities. Again seen are anchor screws in the right humeral head. VISUALIZED UPPER ABDOMEN: Normal. OTHER FINDINGS: None. IMPRESSION: No active pulmonary disease. Subsegmental atelectasis in the left lower lobe.
--- NOTE | 2017-03-24 12:43 | CP.PCM.HP ---
History of Present Illness - History of Present Illness History of Present Illness: 66 y/o Female with a PMHx remarkable for HIV, chronic low back pain, and tobacco abuse whom presented to the [facility] ED this morning complaining of worsening SOB and cough for the past 24 hours. Pt was originally admitted to [facility] last week for a COPD exacerbation but signed out AMA. She reports upon discharge she felt well overall but developed a cough after going outside to go to the store. Pt reports a sleepless night secondary to coughing fits and SOB. She reports associated chest pain with prolonged coughing and denies sputum production. Denies fever/chills, sick contacts. Pt reports taking her medications upon leaving the hospital. Upon further interviewing, pt reports to have resumed tobacco abuse after her e-ciggarette broke. She also complains of increased urinary frequency. Denies any hemoptysis, night sweats, N/V/D, cardiac symptoms, dysuria, pyuria, discharge, suprapubic pain, numbness/ tingling. PMD: Dr. Lubin/Dr. Zenaida Liu PMHx: HIV (CD4 ~970), COPD, Mild Intermittent Asthma, Chronic Low Back Pain Meds: as per med rec PSurgHx: shoulder surgery, b/l wrist surgery s/o fracture SocialHx: denies ETOH/Illicit drug use, reports resuming smoking ciggarettes 3 weeks ago, 2-3 per day ED COURSE: Vitals: T: 98.2 F, HR: 79, BP: 153/103, RR: 18, POX 100% RA PE: B/L wheezes, mild respiratory distress LABS: CBC: 11.1>11.6/35.0<342 CMP: WNL Trop I: <0.0120 BNP: 305 Imaging: CXR: no active pulmonary disease, subsegmenetal athelectasis in left lower lobe. EKG: NSR, regular rhythm, 74 BPM with left axis deviation Meds: Duo-neb x5, Methylprednisone 125mg once admitted to telemetry Present on Admission - Present on Admission Any Indicators Present on Admission: No Review of Systems - Review of Systems All systems: reviewed and no additional remarkable complaints except Review of Systems: ROS as per HPI, all other systems reviewed and negative Past Patient History - Infectious Disease Hx of Infectious Diseases: None - Past Medical History & Family History Past Medical History?: Yes - Past Social History Smoking Status: Heavy Smoker > 10 Cigarettes Daily Alcohol: Occasional Drugs: Denies - CARDIAC Hx Hypercholesterolemia: Yes - PULMONARY Hx Asthma: Yes Hx Chronic Obstructive Pulmonary Disease (COPD): Yes Hx Pneumonia: Yes (x3 in 2000) - NEUROLOGICAL Hx Neurological Disorder: No - HEENT Hx HEENT Problems: No - RENAL Hx Chronic Kidney Disease: No - ENDOCRINE/METABOLIC Hx Endocrine Disorders: No - HEMATOLOGICAL/ONCOLOGICAL Hx Human Immunodeficiency Virus (HIV): Yes - INTEGUMENTARY Hx Dermatological Problems: No - MUSCULOSKELETAL/RHEUMATOLOGICAL Hx Arthritis: Yes - GASTROINTESTINAL Hx Gastrointestinal Disorders: No - GENITOURINARY/GYNECOLOGICAL Hx Genitourinary Disorders: No - PSYCHIATRIC Hx Anxiety: Yes Hx Depression: Yes - SURGICAL HISTORY Hx Cholecystectomy: Yes - ANESTHESIA Hx Anesthesia: Yes Hx Anesthesia Reactions: No Hx Malignant Hyperthermia: No Meds Allergies/Adverse Reactions: Allergies Allergy/AdvReac Type Severity Reaction Status Date / Time No Known Allergies Allergy Verified 12/14/15 22:06 Physical Exam - Constitutional Appears: Non-toxic, No Acute Distress - Head Exam Head Exam: ATRAUMATIC - Eye Exam Eye Exam: EOMI. absent: Conjunctival injection, Scleral icterus Pupil Exam: PERRL - ENT Exam ENT Exam: Mucous Membranes Moist - Neck Exam Neck exam: Positive for: Full Rom. Negative for: Lymphadenopathy, Tenderness - Respiratory Exam Respiratory Exam: Decreased Breath Sounds, Wheezes, NORMAL BREATHING PATTERN. absent: Accessory Muscle Use, Clear to Auscultation Bilateral, Rales, Respiratory Distress - Cardiovascular Exam Cardiovascular Exam: REGULAR RHYTHM, RRR, +S1, +S2. absent: Tachycardia, Gallop , JVD, Rubs, Systolic Murmur - GI/Abdominal Exam GI & Abdominal Exam: Normal Bowel Sounds, Soft. absent: Tenderness - Extremities Exam Extremities exam: Positive for: normal inspection, pedal pulses present. Negative for: pedal edema, tenderness - Back Exam Back exam: absent: CVA tenderness (L), CVA tenderness (R) - Neurological Exam Neurological exam: Alert, CN II-XII Intact, Oriented x3 - Psychiatric Exam Psychiatric exam: Normal Affect, Normal Mood - Skin Skin Exam: Dry, Intact, Normal Color, Warm Results - Vital Signs Recent Vital Signs: Last Vital Signs Temp 97.5 F L 03/24/17 10:35 Pulse 75 03/24/17 10:35 Resp 20 03/24/17 10:35 BP 135/75 03/24/17 10:35 Pulse Ox 98 03/24/17 10:35 - Labs Result Diagrams: 03/24/17 06:40 03/24/17 06:40 Labs: Laboratory Results - last 24 hr 03/24/17 03/24/17 06:40 06:40 WBC 11.1 H RBC 3.66 L Hgb 11.6 L Hct 35.0 MCV 95.4 MCH 31.6 H MCHC 33.1 RDW 14.3 Plt Count 342 MPV 7.3 Neut % (Auto) 81.6 H Lymph % (Auto) 13.2 L Linn % (Auto) 5.0 Eos % (Auto) 0.1 Baso % (Auto) 0.1 Neut # 9.1 H Lymph # 1.5 Linn # 0.6 Eos # 0.0 Baso # 0.0 Sodium 148 Potassium 4.0 Chloride 108 H Carbon Dioxide 27 Anion Gap 17 BUN 22 H Creatinine 0.8 Est GFR ( Amer) > 60 Est GFR (Non-Af Amer) > 60 Random Glucose 97 Calcium 9.3 Troponin I < 0.0120 NT-Pro-B Natriuret Pep 305 Assessment & Plan (1) Asthma exacerbation with COPD (chronic obstructive pulmonary disease) Assessment and Plan: -COPD exacerbation from resuming tobacco abuse and medical noncompliance -monitor vitals -Supplemental O2 2L via NC -Duo-nebs Q4H -Methylprednisone 40mg PO QD -Levoquin 750mg QD -reg diet -repeat CXR in the am Status: Acute (2) Increased urinary frequency Assessment and Plan: UA and Urine C&S ordered, will follow up and intervene accordingly. Status: Acute (3) HIV (human immunodeficiency virus infection) Assessment and Plan: controlled resume home medications Status: Chronic (4) Prophylactic measure Assessment and Plan: -SCDs -Lovenox 40mg SC QD Status: Acute
[2017-03-24] MEDS ORDERED: oxyCODONE 40 mg ER Tab (oxyCONTIN) PO PRN (16:50)
[2017-03-24] MEDS: levoFLOXacin 750 mg in D5W 750 MG/150 ML BAG IVPB SCH (20:44)
[2017-03-24] MEDS: oxyCODONE 20 mg ER Tab (oxyCONTIN) PO SCH (21:06)
[2017-03-24] MEDS: Albuterol-Ipratrop 3 mg / 0.5 (3 ml) UD INH PRN (21:11)
[2017-03-24] MEDS: oxyCODONE 40 mg ER Tab (oxyCONTIN) PO SCH (21:15)
[2017-03-25 02:00] LABS: RBC URINE 9 /hpf (0-3); URINE BACTERIA RARE (<OCC); URINE BILIRUBIN NEGATIVE (NEGATIVE); URINE BLOOD NEGATIVE (NEGATIVE); URINE COLOR YELLOW (YELLOW); URINE GLUCOSE (UA) NEG (Normal); URINE KETONE TRACE mg/dL (NEGATIVE); URINE LEUKOCYTE ESTERASE LARGE Leu/uL (Negative); URINE PROTEIN 30 mg/dL (NEGATIVE); WBC URINE 39 /hpf (0-5)
[2017-03-25 06:23] LABS: MEAN CELL VOLUME 95.6 fl (81.0-99.0); MEAN CORPUSCULAR HEMOGLOBIN 31.4 pg (27.0-31.0); MEAN CORPUSCULAR HGB CONC 32.9 g/dL (33.0-37.0); RED CELL DISTRIBUTION WIDTH 14.4 % (11.5-14.5); WHITE BLOOD COUNT 14.9 K/uL (4.8-10.8)
[2017-03-25 06:46] LABS: ALB/GLOB RATIO 1.4 (1.0-2.1); ALKALINE PHOSPHATASE 68 U/L (38-126); ALT/SGPT 23 U/L (9-52); AST/SGOT 18 U/L (14-36); BILIRUBIN,TOTAL 0.3 mg/dl (0.2-1.3); BLOOD UREA NITROGEN 29 mg/dl (7-17); CALCIUM 9.4 mg/dL (8.4-10.2); CARBON DIOXIDE 32 mmol/L (22-30); CHLORIDE 104 mmol/L (98-107); GFR AFRICAN-AMERICAN > 60; GLUCOSE,RANDOM 96 mg/dL (65-105); POTASSIUM 4.3 MMOL/L (3.6-5.0); SODIUM 145 mmol/l (132-148); TOTAL PROTEIN 6.5 G/DL (6.3-8.2)
--- NOTE | 2017-03-25 08:38 | CP.PCM.PN ---
Subjective - Date & Time of Evaluation Date of Evaluation: 03/25/17 Time of Evaluation: 07:45 - Subjective Subjective: Pt seen and examined at bedside. She denies significant overnight events. She continues to have a cough; Denies blood in sputum. Ambulates well. Able to urinate and have bowel movements. Shares of urinating 5 times in 4 hours. Able to void completely. Denies hematuria, dysuria. Vitals stable. Denies significant SOB on exertion, or chills. PE: Lungs: Bilateral expiratory wheeze/Phegmus sounding cough without sputum production on all lung ghotra greater on upper lung ghotra. Cardiac: regular rate, rhythm, S1S2 Abdominal: nontender, soft, bowel sounds present CVA: negative for tenderness. AAOx3 1) COPD exacerbation: Continue with duoneb, start IV methylprednisone 10 mg; d/c PO f/u repeat CXR prescribe nebulizer when on d/c 2) Increased Urinary frequency -leuk esterase positive -Pending urine culture. 3) HIV asymptomatic -CD4: ~970 -Resume meds 4) Tobacco abuse -stated nicotine patch -discussed with patient; she is contemplating quitting and is aware smoking exacerbates her symptoms. -encouraged her to follow up with Dr. Liu to continue with smoking sessation treatment supplementing with gum, counseling. 5)Prophylaxis -SCDs -Levonox 40 mg -Ambulating Gabriel Sharp, PGY1 Objective - Vital Signs/Intake and Output Vital Signs (last 24 hours): Temp Pulse Resp BP Pulse Ox 97.8 F 64 20 135/82 96 03/25/17 05:00 03/25/17 05:00 03/25/17 05:00 03/25/17 05:00 03/25/17 05:00 - Medications Medications: Current Medications Abacavir Sulfate (Ziagen) 600 mg PO DAILY [facility] Last Admin: 03/24/17 21:06 Dose: 600 mg Albuterol/Ipratropium (Duoneb 3 Mg/0.5 Mg (3 Ml) Ud) 3 ml INH RQ4 PRN PRN Reason: Shortness of Breath Last Admin: 03/24/17 21:11 Dose: 3 ml Clonazepam (Klonopin) 1.5 mg PO TID PRN PRN Reason: Anxiety Last Admin: 03/24/17 23:28 Dose: 1.5 mg Dolutegravir Sodium (Tivicay) 50 mg PO DAILY [facility] Last Admin: 03/24/17 21:07 Dose: 50 mg Enoxaparin Sodium (Lovenox) 40 mg SC DAILY [facility] PRN Reason: Protocol Escitalopram Oxalate (Lexapro) 10 mg PO DAILY [facility] Last Admin: 03/24/17 21:02 Dose: 10 mg Levofloxacin/Dextrose (Levaquin 750mg) 750 mg in 150 mls @ 100 mls/hr IVPB DAILY [facility] Last Admin: 03/24/17 20:44 Dose: Not Given Lamivudine (Epivir) 300 mg PO DAILY [facility] Last Admin: 03/24/17 21:05 Dose: 300 mg Nicotine (Nicoderm Cq) 1 patch TD DAILY [facility] Last Admin: 03/24/17 17:12 Dose: 1 patch Oxycodone HCl (Oxycontin Extended Release Tab) 40 mg PO Q12 [facility] Last Admin: 03/24/17 21:15 Dose: Not Given Oxycodone HCl (Oxycontin Extended Release Tab) 20 mg PO Q12 [facility] Last Admin: 03/24/17 21:06 Dose: 20 mg Prednisone (Prednisone Tab) 40 mg PO DAILY [facility] - Labs Labs: 03/25/17 06:00 03/25/17 06:00
[2017-03-25] MEDS ORDERED: Patient's Own Med (Abacavir/Dolutegravir/Lamivudi [Triumeq Tablet] 1 TAB) PO SCH (09:00)
[2017-03-25] MEDS ORDERED: Tmp-Smz 800 mg-160 mg DS Tab PO SCH (09:15)
[2017-03-25] MEDS: Enoxaparin 40 mg Syringe SC SCH (09:19)
[2017-03-25] MEDS: oxyCODONE 20 mg ER Tab (oxyCONTIN) PO SCH ×2 (09:19→21:15)
[2017-03-25] MEDS: oxyCODONE 40 mg ER Tab (oxyCONTIN) PO SCH ×2 (09:20→21:15)
--- NOTE | 2017-03-25 09:42 | CARD ---
APPROVED REPORT EKG Measurement Heart [id number] AR 154P [id number] <Conclusion> Normal sinus rhythm Low voltage QRS Inferior infarct, age undetermined ST & T wave abnormality, consider lateral ischemia Abnormal ECG
[2017-03-25] MEDS ORDERED: methylPREDNISolone 10 MG in Sodium Chloride 0.9% 50 ML IV SCH (11:00)
[2017-03-25] MEDS: Albuterol-Ipratrop 3 mg / 0.5 (3 ml) UD INH PRN ×3 (11:11→22:17)
[2017-03-25] MEDS: levoFLOXacin 750 mg in D5W 750 MG/150 ML BAG IVPB SCH (11:13)
[2017-03-25] MEDS ORDERED: methylPREDNISolone 30 MG in Sodium Chloride 0.9% 50 ML IV SCH (15:15)
--- NOTE | 2017-03-25 16:27 | RAD ---
HISTORY: COPD, possible infection COMPARISON: March 24, 2017. TECHNIQUE: Chest PA and lateral FINDINGS: LUNGS: Left lower lobe atelectasis/infiltrates similar to that seen yesterday but better appreciated on the lateral view. PLEURA: No significant pleural effusion identified. No pneumothorax apparent. CARDIOVASCULAR: No radiographic findings to suggest acute or significant cardiovascular disease. OSSEOUS STRUCTURES: No significant abnormalities. VISUALIZED UPPER ABDOMEN: Normal. OTHER FINDINGS: None. IMPRESSION: Confirmation of left lower lobe atelectasis/infiltrate without appreciable interval change compared to the prior study March 24, 2017.
[2017-03-25 17:00] VITALS: RESP 20
[2017-03-26 06:54] LABS: BLOOD UREA NITROGEN 21 mg/dl (7-17); CALCIUM 9.1 mg/dL (8.4-10.2); CARBON DIOXIDE 28 mmol/L (22-30); CHLORIDE 104 mmol/L (98-107); GFR AFRICAN-AMERICAN > 60; GLUCOSE,RANDOM 99 mg/dL (65-105); POTASSIUM 4.5 MMOL/L (3.6-5.0); SODIUM 143 mmol/l (132-148)
[2017-03-26 06:56] LABS: HEMATOCRIT 34.4 % (34.0-47.0); MEAN CELL VOLUME 96.2 fl (81.0-99.0); MEAN CORPUSCULAR HEMOGLOBIN 31.6 pg (27.0-31.0); MEAN CORPUSCULAR HGB CONC 32.9 g/dL (33.0-37.0); RED CELL DISTRIBUTION WIDTH 14.4 % (11.5-14.5); WHITE BLOOD COUNT 10.1 K/uL (4.8-10.8)
[2017-03-26 07:24] VITALS: BP 126/84; PULSE 58; TEMP 97.6; O2SAT 97
[2017-03-26] MEDS: Albuterol-Ipratrop 3 mg / 0.5 (3 ml) UD INH PRN (08:10)
--- NOTE | 2017-03-26 08:23 | CP.PCM.PN ---
Subjective - Date & Time of Evaluation Date of Evaluation: 03/26/17 Time of Evaluation: 07:45 - Subjective Subjective: Patient seen at bedside, AAOx3; Day 3 of IV ABX. Coughing has improved. Ambulates well. Vitals are stable. She presents significantly improved affect. Urine frequency has improved since yesterday. She shares the desire to quit smoking. She desires to go home soon. Objective - Vital Signs/Intake and Output Vital Signs (last 24 hours): Temp Pulse Resp BP Pulse Ox 97.6 F 58 L 20 126/84 97 03/26/17 07:23 03/26/17 07:23 03/26/17 07:23 03/26/17 07:23 03/26/17 07:23 - Medications Medications: Current Medications Abacavir Sulfate (Ziagen) 600 mg PO DAILY [facility] Last Admin: 03/25/17 09:21 Dose: 600 mg Albuterol/Ipratropium (Duoneb 3 Mg/0.5 Mg (3 Ml) Ud) 3 ml INH RQ4 PRN PRN Reason: Shortness of Breath Last Admin: 03/26/17 08:10 Dose: 3 ml Clonazepam (Klonopin) 1.5 mg PO TID PRN PRN Reason: Anxiety Last Admin: 03/26/17 02:01 Dose: 1.5 mg Dolutegravir Sodium (Tivicay) 50 mg PO DAILY [facility] Last Admin: 03/25/17 09:21 Dose: 50 mg Enoxaparin Sodium (Lovenox) 40 mg SC DAILY [facility] PRN Reason: Protocol Last Admin: 03/25/17 09:19 Dose: 40 mg Escitalopram Oxalate (Lexapro) 10 mg PO DAILY [facility] Last Admin: 03/25/17 09:19 Dose: 10 mg Levofloxacin/Dextrose (Levaquin 750mg) 750 mg in 150 mls @ 100 mls/hr IVPB DAILY [facility] Last Admin: 03/25/17 11:13 Dose: 100 mls/hr Methylprednisolone 40 mg/ (Sodium Chloride) 50 mls @ 100 mls/hr IV DAILY [facility] Lamivudine (Epivir) 300 mg PO DAILY [facility] Last Admin: 03/25/17 09:22 Dose: 300 mg Nicotine (Nicoderm Cq) 1 patch TD DAILY [facility] Last Admin: 03/25/17 09:19 Dose: 1 patch Oxycodone HCl (Oxycontin Extended Release Tab) 40 mg PO Q12 [facility] Last Admin: 03/25/17 21:15 Dose: 40 mg Oxycodone HCl (Oxycontin Extended Release Tab) 20 mg PO Q12 [facility] Last Admin: 03/25/17 21:15 Dose: 20 mg - Labs Labs: 03/26/17 05:45 03/26/17 05:45 - Head Exam Head Exam: ATRAUMATIC, NORMAL INSPECTION, NORMOCEPHALIC - Eye Exam Eye Exam: EOMI, Normal appearance - Respiratory Exam Additional comments: PE: No wheezing appreciated on upper/mid lung ghotra; L lower lung field with phlegmatous cough without sputum production Breathing well on RA. - Cardiovascular Exam Cardiovascular Exam: REGULAR RHYTHM, +S1, +S2 - GI/Abdominal Exam GI & Abdominal Exam: Normal Bowel Sounds - Neurological Exam Neurological Exam: Alert, Awake, Oriented x3 - Psychiatric Exam Psychiatric exam: Normal Affect, Normal Mood Assessment and Plan - Assessment and Plan (Free Text) Assessment: Pt has significantly improved with respiratory symtoms. 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 She shares that it was a mistake and will be corrected. Pt's vitals have been stable, shes on duoneb treatments and breathing on RA. Plan: 1) COPD exacerbation: Continue with duoneb start IV methylprednisone 40 mg repeat CXR: conisistent with findings on 03/24/2017 -Transition from IV to PO levoquin. d/c with tiotropium inhaler, phenergran-Codeine for cough -Walk test 6 minutes prescribe nebulizer when on d/c 2) Increased Urinary frequency -leuk esterase positive -Pending urine culture. 3) HIV asymptomatic -CD4: ~970 -Resume meds 4) Tobacco abuse -continue nicotine patch -Pt shared of strong desire to continue with patches and plans for sucessfully quitting. discussed with patient her options and ways to recognize triggers. -encouraged her to follow up out patient so that we can work together in helping her reach her goals. -written for low dose CT screen OP 5)Prophylaxis -SCDs -Levonox 40 mg -Ambulating Gabriel Sharp, PGY1
[2017-03-26] MEDS ORDERED: methylPREDNISolone 40 MG in Sodium Chloride 0.9% 50 ML IV SCH (09:00)
[2017-03-26] MEDS: levoFLOXacin 750 mg in D5W 750 MG/150 ML BAG IVPB SCH ×2 (09:08→09:55)
[2017-03-26] MEDS: Enoxaparin 40 mg Syringe SC SCH (09:10)
[2017-03-26] MEDS: oxyCODONE 20 mg ER Tab (oxyCONTIN) PO SCH (09:26)
[2017-03-26] MEDS: oxyCODONE 40 mg ER Tab (oxyCONTIN) PO SCH (09:27)
--- NOTE | 2017-03-26 15:12 | CP.PCM.DIS ---
Provider - Provider Date of Admission: 03/25/17 08:20 Attending physician: Chaay Helms MD Time Spent in preparation of Discharge (in minutes): 20 Hospital Course - Lab Results Lab Results: Micro Results 03/24/17 11:08 Blood Blood Culture - Preliminary NO GROWTH AFTER 48 HOURS 03/24/17 10:30 Blood Blood Culture - Preliminary NO GROWTH AFTER 48 HOURS 03/24/17 06:11 Urine Urine Culture - Final No Growth (<1,000 CFU/ML) Most Recent Lab Values WBC 10.1 K/uL (4.8-10.8) 03/26/17 05:45 RBC 3.57 Mil/uL (3.80-5.20) L 03/26/17 05:45 Hgb 11.3 g/dL (12.0-16.0) L 03/26/17 05:45 Hct 34.4 % (34.0-47.0) 03/26/17 05:45 MCV 96.2 fl (81.0-99.0) 03/26/17 05:45 MCH 31.6 pg (27.0-31.0) H 03/26/17 05:45 MCHC 32.9 g/dL (33.0-37.0) L 03/26/17 05:45 RDW 14.4 % (11.5-14.5) 03/26/17 05:45 Plt Count 313 K/uL (130-400) 03/26/17 05:45 MPV 7.3 fl (7.2-11.7) 03/24/17 06:40 Neut % (Auto) 81.6 % (50.0-75.0) H 03/24/17 06:40 Lymph % (Auto) 13.2 % (20.0-40.0) L 03/24/17 06:40 [place] % (Auto) 5.0 % (0.0-10.0) 03/24/17 06:40 Eos % (Auto) 0.1 % (0.0-4.0) 03/24/17 06:40 Baso % (Auto) 0.1 % (0.0-2.0) 03/24/17 06:40 Neut # 9.1 K/uL (1.8-7.0) H 03/24/17 06:40 Lymph # 1.5 K/uL (1.0-4.3) 03/24/17 06:40 [place] # 0.6 K/uL (0.0-0.8) 03/24/17 06:40 Eos # 0.0 K/uL (0.0-0.7) 03/24/17 06:40 Baso # 0.0 K/uL (0.0-0.2) 03/24/17 06:40 Sodium 143 mmol/l (132-148) 03/26/17 05:45 Potassium 4.5 MMOL/L (3.6-5.0) 03/26/17 05:45 Chloride 104 mmol/L (98-107) 03/26/17 05:45 Carbon Dioxide 28 mmol/L (22-30) 03/26/17 05:45 Anion Gap 16 (10-20) 03/26/17 05:45 BUN 21 mg/dl (7-17) H 03/26/17 05:45 Creatinine 0.9 mg/dL (0.7-1.2) 03/26/17 05:45 Est GFR ( Amer) > 60 03/26/17 05:45 Est GFR (Non-Af Amer) > 60 03/26/17 05:45 Random Glucose 99 mg/dL (65-105) 03/26/17 05:45 Calcium 9.1 mg/dL (8.4-10.2) 03/26/17 05:45 Total Bilirubin 0.3 mg/dl (0.2-1.3) 03/25/17 06:00 AST 18 U/L (14-36) 03/25/17 06:00 ALT 23 U/L (9-52) 03/25/17 06:00 Alkaline Phosphatase 68 U/L (38-126) 03/25/17 06:00 Troponin I < 0.0120 ng/mL (0.00-0.120) 03/24/17 06:40 NT-Pro-B Natriuret Pep 305 pg/ml (0-900) 03/24/17 06:40 Total Protein 6.5 G/DL (6.3-8.2) 03/25/17 06:00 Albumin 3.8 g/dL (3.5-5.0) 03/25/17 06:00 Globulin 2.7 gm/dL (2.2-3.9) 03/25/17 06:00 Albumin/Globulin Ratio 1.4 (1.0-2.1) 03/25/17 06:00 Urine Color Yellow (YELLOW) 03/25/17 01:46 Urine Clarity Slighty-cloudy (Clear) 03/25/17 01:46 Urine pH 5.0 (5.0-8.0) 03/25/17 01:46 Ur Specific Monitor 1.030 (1.003-1.030) 03/25/17 01:46 Urine Protein 30 mg/dL (NEGATIVE) 03/25/17 01:46 Urine Glucose (UA) Neg mg/dL (Normal) 03/25/17 01:46 Urine Ketones Trace mg/dL (NEGATIVE) 03/25/17 01:46 Urine Blood Negative (NEGATIVE) 03/25/17 01:46 Urine Nitrate Negative (NEGATIVE) 03/25/17 01:46 Urine Bilirubin Negative (NEGATIVE) 03/25/17 01:46 Urine Urobilinogen 2.0 mg/dL (0.2-1.0) H 03/25/17 01:46 Ur Leukocyte Esterase Large Angela/uL (Negative) 03/25/17 01:46 Urine RBC (Auto) 9 /hpf (0-3) H 03/25/17 01:46 Urine Microscopic WBC 39 /hpf (0-5) H 03/25/17 01:46 Ur Squamous Epith Cells 7 /hpf (0-5) H 03/25/17 01:46 Urine Bacteria Rare (<OCC) 03/25/17 01:46 Hepatitis A IgM Ab Negative (NEGATIVE) 03/26/17 05:45 Hep Bs Antigen Negative (NEGATIVE) 03/26/17 05:45 Hep B Core IgM Ab Negative (NEGATIVE) 03/26/17 05:45 Hepatitis C Antibody Negative (NEGATIVE) 03/26/17 05:45 - Hospital Course Hospital Course: 66 yo F presents with COPD exacerbation. Duoneb treatments, levofloxacin IV x 3 days, nicoderm patch for smoking sessation, lovenox for DVT prophylaxis. Respiratory symptoms significantly improved. Stable to Ar home today with the following prescriptions: Spiriva, Albuterol nebs, nebulizer machine, nicotine patch, low dose lung CT for screening; levofloxacin PO x 4 days; phenergran-Codeine for cough. Discharge Exam - Head Exam Head Exam: ATRAUMATIC, NORMAL INSPECTION, NORMOCEPHALIC - Eye Exam Eye Exam: EOMI, Normal appearance Pupil Exam: NORMAL ACCOMODATION, PERRL - ENT Exam ENT Exam: Mucous Membranes Moist - Neck Exam Neck exam: Full Rom - Respiratory Exam Additional comments: No wheezing appreciated on upper/mid lung ghotra; L lower lung field with phlegmatous cough without sputum production. Breathing well on RA. - Cardiovascular Exam Cardiovascular Exam: REGULAR RHYTHM, +S1, +S2 - GI/Abdominal Exam GI & Abdominal Exam: Normal Bowel Sounds - Neurological Exam Neurological exam: Alert, Oriented x3 - Psychiatric Exam Psychiatric exam: Normal Affect, Normal Mood Discharge Plan - Discharge Medications Prescriptions: Abacavir/Dolutegravir/Lamivudi [Triumeq Tablet] 1 tab PO DAILY #1 tablet Abacavir/Dolutegravir/Lamivudi [Triumeq Tablet] 1 tab PO DAILY #1 tablet Albuterol HFA [Ventolin HFA 90 mcg/actuation (8 g)] 2 puff IH Q4 #1 inhaler clonazePAM [Klonopin] 1.5 mg PO TID PRN #1 tab PRN Reason: Anxiety Escitalopram [Lexapro] 1 tab PO DAILY 1 Days tab levoFLOXacin [Levaquin] 500 mg PO DAILY 4 Days #4 tab - Follow Up Plan Condition: FAIR Disposition: HOME/ ROUTINE Patient education suggested?: Yes Instructions: Albuterol (By breathing), Nicotine (Absorbed through the skin), Levofloxacin (By mouth), Tiotropium (By breathing), How to Stop Smoking (DC), Urinary Tract Infection in Women (DC), COPD (Chronic Obstructive Pulmonary Disease) (DC), How to Use a Nebulizer (DC), How to Use a Nebulizer (GEN) Additional Instructions: follow up with Dr. Hernandez 2-3 days after discharge Make appointment to have Ct Scan of Lung Referrals: [facility] [Outside] Sammy Hernandez MD [Staff Provider] -
== END 2017-03-26 14:30 | disposition home health service (06) | DRG 191 ==
LOC: H.ER 05:32 → H.ERHOLD 09:03 → H.TEL 10:40 → H.MEDSURG1 22:21 → OBSVTOIN 03-25 08:20
PROVIDERS: ADMIT Family Medicine Geriatric Medicine; ATTEND Family Medicine Geriatric Medicine
PROC: 3E0F7GC Introduction of Other Therapeutic Substance into Respiratory Tract, Via Natural or Artificial Opening (ICD-10-PCS; principal; 2017-03-24)
DX: J44.1 Chronic obstructive pulmonary disease with (acute) exacerbation (principal); J45.21 Mild intermittent asthma with (acute) exacerbation; F17.200 Nicotine dependence, unspecified, uncomplicated; Z21 Asymptomatic human immunodeficiency virus [HIV] infection status; E78.00 Pure hypercholesterolemia, unspecified; Z87.01 Personal history of pneumonia (recurrent); Z90.49 Acquired absence of other specified parts of digestive tract; Z91.19 Patient's noncompliance with other medical treatment and regimen; F32.9 Major depressive disorder, single episode, unspecified; F41.9 Anxiety disorder, unspecified; G89.29 Other chronic pain; M19.90 Unspecified osteoarthritis, unspecified site; M54.5 Low back pain; R35.0 Frequency of micturition